=== PATIENT | female | born 1955 | race Caucasian/White ===

== ENCOUNTER 2021-04-23 01:48 | Emergency (ER) | payer MEDICARE, SELFPAY ==
[2021-04-23 01:58] VITALS: BP 109/73; PULSE 70; RESP 18; TEMP 36.6; O2SAT 97
--- NOTE | 2021-04-23 02:14 | ED.GENADULT ---
HPI - General Adult General Chief complaint: Allergic Reaction Stated complaint: allergic reaction Time Seen by Provider: 04/23/21 01:54 History of Present Illness HPI narrative: Patient 66-year-old female presents the emergency department with chief complaint of urticaria. Patient reports that she was started on a new medication recently and reports that she has been itching and having hives that have appeared over her body. Patient states that she has been taking Benadryl that helps the sensation somewhat but reports that tonight it got worse. Patient states she is attempted to see her primary care physician but has not been able to get in contact with them. Patient denies shortness of breath denies angioedema. Related Data Allergies Allergy/AdvReac Type Severity Reaction Status Date / Time No Known Allergies Allergy Unknown Verified 07/16/09 11:23 Review of Systems Review of Systems: A 10 system review of systems was completed on the patient and is negative except for what is stated in the HPI. Nursing and ancillary documentation was reviewed. Exam Narrative: GENERAL: Well-appearing, well-nourished, and in no acute distress. HEAD: Normocephalic, atraumatic. EYES: PERRLA and EOMI. ENT: Nares clear, no rhinorrhea or epistaxis. Mucous membranes moist. NECK: Supple. CHEST: Clear to auscultation. No respiratory distress. HEART: Regular rate and rhythm. No murmur heard. Normal peripheral pulses. ABDOMEN: Soft, nontender, nondistended, normal active bowel sounds. EXTREMITIES: Normal range of motion. No edema. SKIN: Warm, dry, urticaria present. NEURO: No focal deficits. Alert and oriented x3. PSYCH: Normal mood and affect. Course Vital Signs Vital signs: Vital Signs Temperature 36.6 C 04/23/21 01:58 Pulse Rate 70 04/23/21 01:58 Respiratory Rate 18 04/23/21 01:58 Blood Pressure 109/73 04/23/21 01:58 Pulse Oximetry 97 04/23/21 01:58 Temperature 36.6 C 04/23/21 01:58 Pulse Rate 70 04/23/21 01:58 Respiratory Rate 18 04/23/21 01:58 Blood Pressure 109/73 04/23/21 01:58 Pulse Oximetry 97 04/23/21 01:58 Medical Decision Making Vital Signs Vital Signs: Vital Signs Temperature 36.6 C 04/23/21 01:58 Pulse Rate 70 04/23/21 01:58 Respiratory Rate 18 04/23/21 01:58 Blood Pressure 109/73 04/23/21 01:58 Pulse Oximetry 97 04/23/21 01:58 Temperature 36.6 C 04/23/21 01:58 Pulse Rate 70 04/23/21 01:58 Respiratory Rate 18 04/23/21 01:58 Blood Pressure 109/73 04/23/21 01:58 Pulse Oximetry 97 04/23/21 01:58 Discharge Plan Discharge Clinical Impression: Allergic reaction Qualifiers: Encounter type: initial encounter Qualified Code(s): T78.40XA - Allergy, unspecified, initial encounter Patient Disposition: Home, Self-Care Condition: Stable Instructions: Antibiotic Form, General Allergic Reaction (ED) Prescriptions: New methylprednisolone [Medrol (Ralph)] 4 mg tablets,dose pack See Rx Instructions .ROUTE .COMPLEX Qty: 21 RF: 0 Follow-up/Referrals: Tigre Montejo MD [Primary Care Provider] - Time of Disposition: 02:56
[2021-04-23] MEDS: methylPREDNISolone SOD SUCC 125 MG VIAL IV PUSH (02:19)
[2021-04-23] MEDS: FAMOTIDINE 20 MG/2 ML VIAL IV PUSH (02:19)
[2021-04-23] MEDS: diphenhydrAMINE HCl INJ 50 MG/ML VIAL 25 MG IV PUSH (02:19)
[2021-04-23 03:42] VITALS: BP 110/69; PULSE 69; RESP 18; O2SAT 99
== END 2021-04-23 04:06 | disposition home or self-care (01) ==
PROVIDERS: Emergency Provider Emergency Medicine; PCP Obstetrics & Gynecology
DX: T78.40XA Allergy, unspecified, initial encounter (principal)
CPT/HCPCS: 96374; 96375; 99284; J1200; J2930

== ENCOUNTER 2022-03-27 14:27 | Outpatient (CLI) | payer MEDICARE, SELFPAY ==
--- NOTE | 2022-03-28 11:15 | P.PCNPFT_ITS ---
PFT Procedure Performed PFT Procedure Performed Plethysmography (Lung Vol) Diffusing Cap (DLCO) Flow Vol Loop Spirometry w/o Bronchodil PFT Interpretation Lung volumes were measured with the body plethysmography method. Lung volumes are unremarkable. Spirometry showed diminished expiratory flow rates and a d iminished FEV1 to FVC ratio 61%, indicative of obstructive airway disease. No post bronchodilator study was carried out. Lung diffusion capacity is moderately reduced at 53% predicted. Flow-volume loop is consistent with obstructive airway disease. Impression: Moderate obstructive airway disease. Moderately reduced lung diffusion capacity.
== END 2022-03-27 14:28 | disposition home or self-care (01) ==
PROVIDERS: PCP Internal Medicine; Visit Provider Internal Medicine Cardiovascular Disease
DX: R06.00 Dyspnea, unspecified (principal); J44.9 Chronic obstructive pulmonary disease, unspecified
CPT/HCPCS: 94375; 94726; 94729

== ENCOUNTER 2022-05-15 09:31 | Outpatient (CLI) | payer MEDICARE, SELFPAY ==
--- NOTE | ~2022-05-15 | XR_ITS ---
EXAMINATION: XR chest 2V DATE: 05/15/2022 09:59 INDICATION: Dyspnea on exertion. Possible asthma. TECHNIQUE: PA and lateral views of the chest were obtained. COMPARISON: None FINDINGS: Mild hyperexpansion of lungs with slight flattening of the diaphragm on the lateral projection. Linea r discoid atelectasis at the bilateral lung bases. No other airspace opacities, pulmonary edema, pleu ral effusion or pneumothorax. The cardiomediastinal silhouette is normal. Mild thoracic spondylosis. IMPRESSION: 1. Mild hyperexpansion of lungs which could be seen with asthma or COPD. 2. Mild discoid atelectasis at the bilateral lung bases. Reviewed, dictated and finalized at location B.
== END 2022-05-15 09:32 | disposition home or self-care (01) ==
PROVIDERS: PCP Internal Medicine; Visit Provider Physician Assistant
DX: R06.02 Shortness of breath (principal); R91.8 Other nonspecific abnormal finding of lung field
CPT/HCPCS: 71046

== ENCOUNTER 2022-06-01 07:03 | Emergency (ER) | payer MEDICARE, SELFPAY ==
[2022-06-01] VITALS (33 sets, daily range): BP systolic 94–110; BP diastolic 52–77; PULSE 78–129; RESP 13–25; TEMP 38.2; O2SAT 95–100
--- NOTE | ~2022-06-01 | XR_ITS ---
EXAMINATION: XR chest 1V portable DATE: 06/01/2022 09:20 INDICATION: Fever and cough. TECHNIQUE: frontal view of the chest was obtained. COMPARISON: Chest radiograph dated 06/01/2022 FINDINGS: Again seen is mild hyperexpansion of lungs. No focal airspace opacities, pulmonary edema, pleural eff usion or pneumothorax. The cardiomediastinal silhouette is normal. IMPRESSION: 1. Mild hyperexpansion of lungs without airspace disease. Reviewed, dictated and finalized at location A. CURE WORKER
--- NOTE | ~2022-06-01 | CT_ITS ---
EXAMINATION: CT IAC/mastoids BI wo con DATE: 06/01/2022 10:16 INDICATION: Mastoiditis with fever TECHNIQUE: Computed tomography (CT) of the temporal bones was performed without intravenous contrast. Additional sagittal and coronal reconstructions were performed. The dose-length product was 189.12 m Gy-cm. COMPARISON: None FINDINGS: RIGHT TEMPORAL BONE: Very small mastoid effusion in a few of the more posterior inferior right mastoid air cells. The arlin rity of the mastoid air cells vein clear as is the middle ear cavity including Prussak's space. The s cutum and ossicular chain appear normal. The external auditory canal and tympanic membrane are normal . The oval window, cochlea, vestibule and semicircular canals are normal. No abnormalities identified along the course of the facial nerve. The internal auditory canal, vestibular canal and cochlear can al are normal. No tegmental dehiscence. Carotid canal and jugular bulb are normal. LEFT TEMPORAL BONE: Minimal effusion in the single inferior most right mastoid air cell. The remainder of the mastoid air cells are clear as is the middle ear cavity including Prussak's space. The scutum and ossicular monica n appear normal. The external auditory canal and tympanic membrane are normal. The oval window, cochl ea, vestibule and semicircular canals are normal. No abnormalities identified along the course of the facial nerve. The internal auditory canal, vestibular canal and cochlear canal are normal. No tegmen chandrika dehiscence. Carotid canal and jugular bulb are normal. IMPRESSION: 1. Very small right and negligible left mastoid effusions. Otherwise normal study. Reviewed, dictated and finalized at location A. RVISOR ACCOUNTS RECEIVABLE IMPRESSION: 1. Very small right and negligible left mastoid effusions. Otherwise normal curt dy.
--- NOTE | 2022-06-01 08:57 | ED.GENADULT ---
HPI - General Adult General Chief complaint: Upper Respiratory Infection Stated complaint: Asthma, coughing, sore throat, rash Time Seen by Provider: 06/01/22 08:22 Related Data Home Medications Medication Instructions Recorded Confirmed lorazepam 1 mg tablet 1 mg PO TID PRN 05/01/22 05/06/22 calcium carbonate-vitamin D3 500 cap PO DAILY 05/06/22 mg (1,250 mg)-50 unit capsule multivitamin 1 tablet PO DAILY 05/06/22 05/06/22 Allergies Allergy/AdvReac Type Severity Reaction Status Date / Time No Known Allergies Allergy Unknown Verified 06/01/22 07:16 [facility] Past Medical History Medical History Back pain Surgical History Surgical History (Updated 05/06/22 @ 13:16 by Geni Castellanos MA) H/O removal of cyst Family History Family History Sibling Heart disease Sibling Heart disease Mother Heart disease Social History Social History Smoking status: Never smoker Alcohol intake: current Substance use: unknown Course Vital Signs Vital signs: Vital Signs Temperature 100.7 F H 06/01/22 07:07 Pulse Rate 129 H 06/01/22 07:07 Respiratory Rate 20 06/01/22 07:07 Blood Pressure 110/74 06/01/22 07:07 Pulse Oximetry 99 06/01/22 07:07 Oxygen Delivery Room Air 06/01/22 07:07 Temperature 100.7 F H 06/01/22 07:07 Pulse Rate 95 06/01/22 09:19 Respiratory Rate 17 06/01/22 09:19 Blood Pressure 110/74 06/01/22 07:07 Pulse Oximetry 99 06/01/22 07:07 Oxygen Delivery Room Air 06/01/22 07:07 Medical Decision Making Vital Signs Vital Signs: Vital Signs Temperature 100.7 F H 06/01/22 07:07 Pulse Rate 129 H 06/01/22 07:07 Respiratory Rate 20 06/01/22 07:07 Blood Pressure 110/74 06/01/22 07:07 Pulse Oximetry 99 06/01/22 07:07 Oxygen Delivery Room Air 06/01/22 07:07 Temperature 100.7 F H 06/01/22 07:07 Pulse Rate 95 06/01/22 09:19 Respiratory Rate 17 06/01/22 09:19 Blood Pressure 110/74 06/01/22 07:07 Pulse Oximetry 99 06/01/22 07:07 Oxygen Delivery Room Air 06/01/22 07:07 Lab Data Result diagrams: 06/01/22 09:12 06/01/22 09:12 Labs: Lab Results 06/01/22 06/01/22 06/01/22 Range/Units 09:09 09:12 09:12 WBC 10.4 H (4.5-10.0) K/mm3 RBC 4.98 (4.2-5.4) M/mm3 Hgb 14.0 (12.0-15.0) g/dL Hct 42.4 (37.0-47.0) % MCV 85.1 (80-100) fl MCH 28.1 (26-34) pg MCHC 33.0 (32-36) g/dl RDW 13.2 (11.5-14.5) % Plt Count 212 (150-375) k/mm3 MPV 9.0 (7.4-10.4) fl Immature Gran % (Auto) 0.3 (0-0.5) % Neut % (Auto) 89.2 H (45.5-73.1) % Lymph % (Auto) 6.1 L (18.3-44.2) % Hodgeman % (Auto) 4.0 (2.6-8.5) % Eos % (Auto) 0.3 (0-4.4) % Baso % (Auto) 0.1 L (0.2-1.2) % Lymph # (Auto) 0.63 L (0.9-3.2) K/mm3 Hodgeman # (Auto) 0.4 (0.1-0.6) K/mm3 Eos # (Auto) 0.0 (0-0.3) K/mm3 Baso # (Auto) 0.0 (0.0-0.1) K/mm3 Abs Immat Gran (auto) 0.03 (0.00-0.031) K/mm3 Absolute Neuts (auto) 9.3 H (1.3-6.7) K/mm3 Absolute Nucleated RBC 0.0 (0.0-0.012) K/mm3 Nucleated RBC % 0.0 (0.0-0.2) % Sodium 138 (137-145) mmol/L Potassium 4.0 (3.4-5.0) mmol/L Chloride 106 (98-107) mmol/L Carbon Dioxide 22 (22-30) mmol/L Anion Gap 10 (8-16) mmol/L BUN 14 (7-17) mg/dL Creatinine 0.70 (0.7-1.0) mg/dL Estim Creat Clear Calc Not Reportable Estimated GFR > 60 (59 - ) Glucose 120 H (65-110) mg/dL Calcium 8.9 (8.4-10.2) mg/dL Influenza A (RT-PCR) Pending Influenza B (RT-PCR) Pending SARS-CoV-2 RNA (RT-PCR) Pending Discharge Plan Discharge Prescriptions: No Action lorazepam 1 mg tablet 1 mg PO TID PRN multivitamin Tablet 1 tablet PO DAILY albuterol sulfate 90 mcg/actuation HFA aer
--- NOTE | 2022-06-01 08:58 | ECG_ITS ---
Measurements Intervals [place] Rate: 95 P: 64 TN: 157 QRS: 33 QRSD: 91 T: 70 QT: 333 QTc: 419 Interpretive Statements SINUS RHYTHM DELAYED PRECORDIAL R/S TRANSITION BORDERLINE ST-T WAVE ABNORMALITY- DIFFUSE LEADS BORDERLINE ECG NO PREVIOUS ECG AVAILABLE FOR COMPARISON Electronically Signed On 06-01-2022 10:57:22 DISTRICT ADVISER by Kan Velazco D.O.
[2022-06-01] MEDS: ALBUTEROL SULFATE NEB 2.5 MG/3 ML INH 5 MG INHALATION (09:09)
[2022-06-01 09:19] LABS: Basophils Percent Auto 0.1 % (0.2-1.2); Eosinophils Percent Auto 0.3 % (0-4.4); Hematocrit 42.4 % (37.0-47.0); Immature Granulocyte Absolute 0.03 K/mm3 (0.00-0.031); Immature Granulocyte Percent A 0.3 % (0-0.5); Lymphocytes Absolute Auto 0.63 K/mm3 (0.9-3.2); Lymphocytes Percent Auto 6.1 % (18.3-44.2); Mean Corpuscular Hemoglobin 28.1 pg (26-34); Mean Corpuscular Volume 85.1 fl (80-100); Monocytes Absolute Auto 0.4 K/mm3 (0.1-0.6); Neutrophils Absolute Auto 9.3 K/mm3 (1.3-6.7); Neutrophils Percent Auto 89.2 % (45.5-73.1); Platelet Count Result 212 k/mm3 (150-375); Red Blood Count 4.98 M/mm3 (4.2-5.4); Red Cell Distribution Width 13.2 % (11.5-14.5); White Blood Count 10.4 K/mm3 (4.5-10.0)
[2022-06-01 09:33] LABS: Anion Gap 10 mmol/L (8-16); Blood Urea Nitrogen 14 mg/dL (7-17); Calcium 8.9 mg/dL (8.4-10.2); Carbon Dioxide 22 mmol/L (22-30); Chloride 106 mmol/L (98-107); Estimated Glomerular Filt Rate > 60; Glucose 120 mg/dL (65-110); Sodium 138 mmol/L (137-145)
--- NOTE | 2022-06-01 09:41 | ED_ITS ---
HPI - General Adult General Chief complaint: Upper Respiratory Infection Stated complaint: Asthma, coughing, sore throat, rash Time Seen by Provider: 06/01/22 08:22 Related Data Home Medications Medication Instructions Recorded Confirmed lorazepam 1 mg tablet 1 mg PO TID PRN 05/01/22 05/06/22 calcium carbonate-vitamin D3 500 cap PO DAILY 05/06/22 mg (1,250 mg)-50 unit capsule multivitamin 1 tablet PO DAILY 05/06/22 05/06/22 Allergies Allergy/AdvReac Type Severity Reaction Status Date / Time No Known Allergies Allergy Unknown Verified 06/01/22 07:16 [facility] Past Medical History Medical History Back pain Surgical History Surgical History (Updated 05/06/22 @ 13:16 by Geni Castellanos MA) H/O removal of cyst Family History Family History Sibling Heart disease Sibling Heart disease Mother Heart disease Social History Social History Smoking status: Never smoker Alcohol intake: current Substance use: unknown Course Vital Signs Vital signs: Vital Signs Temperature 100.7 F H 06/01/22 07:07 Pulse Rate 129 H 06/01/22 07:07 Respiratory Rate 20 06/01/22 07:07 Blood Pressure 110/74 06/01/22 07:07 Pulse Oximetry 99 06/01/22 07:07 Oxygen Delivery Room Air 06/01/22 07:07 Temperature 100.7 F H 06/01/22 07:07 Pulse Rate 95 06/01/22 09:19 Respiratory Rate 17 06/01/22 09:19 Blood Pressure 110/74 06/01/22 07:07 Pulse Oximetry 99 06/01/22 07:07 Oxygen Delivery Room Air 06/01/22 07:07 Medical Decision Making Vital Signs Vital Signs: Vital Signs Temperature 100.7 F H 06/01/22 07:07 Pulse Rate 129 H 06/01/22 07:07 Respiratory Rate 20 06/01/22 07:07 Blood Pressure 110/74 06/01/22 07:07 Pulse Oximetry 99 06/01/22 07:07 Oxygen Delivery Room Air 06/01/22 07:07 Temperature 100.7 F H 06/01/22 07:07 Pulse Rate 95 06/01/22 09:19 Respiratory Rate 17 06/01/22 09:19 Blood Pressure 110/74 06/01/22 07:07 Pulse Oximetry 99 06/01/22 07:07 Oxygen Delivery Room Air 06/01/22 07:07 Lab Data Result diagrams: 06/01/22 09:12 06/01/22 09:12 Labs: Lab Results 06/01/22 06/01/22 06/01/22 Range/Units 09:09 09:12 09:12 WBC 10.4 H (4.5-10.0) K/mm3 RBC 4.98 (4.2-5.4) M/mm3 Hgb 14.0 (12.0-15.0) g/dL Hct 42.4 (37.0-47.0) % MCV 85.1 (80-100) fl MCH 28.1 (26-34) pg MCHC 33.0 (32-36) g/dl RDW 13.2 (11.5-14.5) % Plt Count 212 (150-375) k/mm3 MPV 9.0 (7.4-10.4) fl Immature Gran % (Auto) 0.3 (0-0.5) % Neut % (
--- NOTE | 2022-06-01 09:48 | ED.GENADULT ---
HPI - General Adult General Chief complaint: Upper Respiratory Infection Stated complaint: Asthma, coughing, sore throat, rash Time Seen by Provider: 06/01/22 08:22 History of Present Illness HPI narrative: 67-year-old female with past medical history of eczema, asthma, seasonal allergies presents for evaluation of cough, fever, sore throat, rash and ear pain. She has taken Benadryl for her rash. Related Data Home Medications Medication Instructions Recorded Confirmed lorazepam 1 mg tablet 1 mg PO TID PRN 05/01/22 05/06/22 calcium carbonate-vitamin D3 500 cap PO DAILY 05/06/22 mg (1,250 mg)-50 unit capsule multivitamin 1 tablet PO DAILY 05/06/22 05/06/22 Allergies Allergy/AdvReac Type Severity Reaction Status Date / Time No Known Allergies Allergy Unknown Verified 06/01/22 07:16 Review of Systems Review of Systems: CONSTITUTIONAL: Denies fever, chills, or sweats. EYES: Denies visual changes, redness, or discharge. ENT: Denies rhinorrhea, congestion, sore throat, or otalgia. CARDIOVASCULAR: Denies chest pain, palpitations, or edema. RESPIRATORY: Denies cough or dyspnea. GASTROINTESTINAL: Denies abdominal pain, nausea, vomiting, or diarrhea. GENITOURINARY: Denies dysuria or hematuria. SKIN: Denies rash or itching. MUSCULOSKELETAL: Denies back pain, joint pain, or myalgia. NEUROLOGIC: Denies headache, numbness, or weakness. PSYCHIATRIC: Denies anxiety or depression. [facility] Past Medical History Medical History Back pain Surgical History Surgical History (Updated 05/06/22 @ 13:16 by Geni Castellanos MA) H/O removal of cyst Family History Family History Sibling Heart disease Sibling Heart disease Mother Heart disease Social History Social History Smoking status: Never smoker Alcohol intake: current Substance use: unknown Exam Narrative: APPEARANCE: No acute distress, nontoxic, resting in bed EYES: EOMI HEENT: Normocephalic, atraumatic, redness and tenderness noted to bilateral mastoids RESPIRATORY: No respiratory distress Clear to auscultation bilaterally with no rhonchi wheezing or rales. CARDIOVASCULAR: Regular rate and rhythm without murmurs rubs or gallops. ABDOMINAL: Soft, nontender, nondistended, no rebound or guarding MUSCULOSKELETAl: Moves all extremities. No clubbing, cyanosis or edema. NEURO: Awake and alert. Following commands, speech normal, no focal deficits SKIN:: Urticarial wheals noted on chest, abdomen and lower extremities warm, dry. No rashes lesions or abrasions PSYCHIATRIC: Normal affect/mood, Course Vital Signs Vital signs: Vital Signs Temperature 100.7 F H 06/01/22 07:07 Pulse Rate 129 H 06/01/22 07:07 Respiratory Rate 20 06/01/22 07:07 Blood Pressure 110/74 06/01/22 07:07 Pulse Oximetry 99 06/01/22 07:07 Oxygen Delivery Room Air 06/01/22 07:07 Temperature 100.7 F H 06/01/22 07:07 Pulse Rate 95 06/01/22 09:19 Respiratory Rate 17 06/01/22 09:19 Blood Pressure 110/74 06/01/22 07:07 Pulse Oximetry 99 06/01/22 07:07 Oxygen Delivery Room Air 06/01/22 07:07 Medical Decision Making Vital Signs Vital Signs: Vital Signs Temperature 100.7 F H 06/01/22 07:07 Pulse Rate 129 H 06/01/22 07:07 Respiratory Rate 20 06/01/22 07:07 Blood Pressure 110/74 06/01/22 07:07 Pulse Oximetry 99 06/01/22 07:07 Oxygen Delivery Room Air 06/01/22 07:07 Temperature 100.7 F H 06/01/22 07:07 Pulse Rate 95 06/01/22 09:19 Respiratory Rate 17 06/01/22 09:19 Blood Pressure 110/74 06/01/22 07:07 Pulse Oximetry 99 06/01/22 07:07 Oxygen Delivery Room Air 06/01/22 07:07 Lab Data Result diagrams: 06/01/22 09:12 06/01/22 09:12 Labs: Lab Results 06/01/22 06/01/22 06/01/22 Range/Units 09:09 09:12 09:12 WBC
[2022-06-01 09:58] LABS: Influenza A QL RT-PCR Negative (Negative); Influenza B QL RT-PCR Negative (Negative); SARS-CoV-2 RNA PCR Negative
[2022-06-01] MEDS: ACETAMINOPHEN 500 MG TABLET 1000 MG PO (10:26)
[2022-06-01] MEDS: diphenhydrAMINE HCl CAP 25 MG CAPSULE PO (10:27)
[2022-06-01] MEDS: DEXAMETHASONE 2 MG TABLET 10 MG PO (10:27)
[2022-06-01] MEDS: LACTATED RINGERS 1,000 ML 500 ML IV CONT (10:30)
[2022-06-01 12:20] LABS: Appearance Urine Clear (Clear); Bilirubin Urine Negative (Negative); Blood Urine Negative (Negative); Color Urine Yellow (Yellow); Glucose Urine UA Negative (Negative); Ketones Urine Trace mg/dL (Negative); Leukocyte Esterase Ur 1+ LEU/UL (Negative); Nitrate Urine Negative (Negative); Protein Urine Negative (Negative); Urobilinogen Urine 0.2 mg/dL (<2.0); pH Urine 6.5 (5.0-9.0)
[2022-06-01 12:23] LABS: Bacteria Urine Trace /hpf; Mucus Urine Heavy /lpf; Squamous Epithelial Cell Urine Few /hpf (Few)
[2022-06-01 12:26] LABS: Add Urine Microscopic? YES
== END 2022-06-01 13:37 | disposition home or self-care (01) ==
PROVIDERS: Emergency Provider Emergency Medicine; PCP Internal Medicine
DX: N39.0 Urinary tract infection, site not specified (principal); Z20.822 Contact with and (suspected) exposure to COVID-19
CPT/HCPCS: 36415; 70480; 71045; 80048; 81001; 85025; 87077; 87081; 87086; 87088; 87636; 87880; 93005; 94640; 96360; 96361; 99284; A9270; J7120; J8540

== ENCOUNTER 2022-06-12 07:53 | Outpatient (CLI) | payer MEDICARE, SELFPAY ==
--- NOTE | ~2022-06-12 | CT_ITS ---
EXAMINATION: CT diagnostic chest wo con DATE: 06/12/2022 08:12 INDICATION: Low diffusion on pulmonary function tests. TECHNIQUE: Computed tomography (CT) of the chest was performed without intravenous contrast. The dose -length product was 131.75 mGy-cm. Automated exposure control and iterative reconstruction technique were employed. COMPARISON: Chest dated 06/01/2022 FINDINGS: There are calcified mediastinal lymph nodes, consistent with chronic granulomatous disease. Heart size is normal. No thoracic lymphadenopathy. No significant pleural or pericardial effusion. T he upper abdomen is unremarkable. No endobronchial lesions. There is calcified granuloma in the right middle lobe. There is right lower lobe atelectasis. There is a 2 mm right upper lobe nodule, image 1 8. There is apical pleural thickening/scarring. There is a 12 mm groundglass nodule in the left upper lobe, likely infectious/inflammatory. There is a linear nodule in the left upper lobe measuring 5 x 2 mm, likely benign. No endobronchial lesions. No focal airspace consolidation. No pneumothorax. Mild thoracic spondylosis. No focal lytic or blastic lesions. IMPRESSION: 1. Small pulmonary nodules which are likely benign. 12 mm groundglass nodule left upper lobe, likely infectious/inflammatory. Consider follow-up low dose CT chest in 12 months. Reviewed, dictated and finalized at location A. ORT MANAGER IMPRESSION: 1. Small pulmonary nodules which are likely benign. 12 mm groundglass nodule le ft upper lobe, likely infectious/inflammatory. Consider follow-up low dose CT c hest in 12 months.
== END 2022-06-12 07:54 | disposition home or self-care (01) ==
PROVIDERS: PCP Internal Medicine; Visit Provider Physician Assistant
DX: R06.02 Shortness of breath (principal); R91.8 Other nonspecific abnormal finding of lung field
CPT/HCPCS: 71250

== ENCOUNTER 2022-08-20 09:05 | Outpatient (CLI) | payer MEDICARE, SELFPAY ==
--- NOTE | ~2022-08-20 | CT_ITS ---
EXAMINATION:CT diagnostic chest wo con DATE: 08/20/2022 09:32 INDICATION: Shortness of breath. TECHNIQUE: Computed tomography (CT) of the chest was performed without intravenous contrast. Automate d exposure control and iterative reconstruction technique were employed. The dose-length product (DLP ) was 127.24 mGy-cm. COMPARISON: Chest CT 06/12/2022 FINDINGS: There is mild scarring at the lung apices. There is mild atelectasis bilaterally. No pleura l effusion. A calcified right lung nodule and calcified right hilar and mediastinal lymph nodes are c onsistent with old granulomatous disease. There is a stable 4 mm nodule in right upper lobe, likely b enign. There is a stable 4 mm nodule in left upper lobe, likely benign. No pleural effusion. The hear t size is normal. No pericardial effusion. There is mild thoracic spondylosis. IMPRESSION: 1. Stable small pulmonary nodules, likely benign. Reviewed, dictated and finalized at location A. [employer]
--- NOTE | 2022-08-20 12:48 | WPDPFTINT ---
PFT Procedure Performed PFT Procedure Performed Spirometry with Pre/Post Bronchodilator Plethysmography (Lung Vol) Diffusing Cap (DLCO) Flow Vol Loop PFT Interpretation This is a pulmonary function test with pre and post-bronchodilator spirometry, plethysmography and diffusing capacity. The test was performed and results interpreted in accordance with the 2019 and 2005 ATS/ERS Task Force guidelines respectively using the Global Lung Function Initiative-2012 reference equations. Patient demonstrated good effort and cooperation. Reproducibility criteria were met. The quality of the pre bronchodilator spirometry maneuver was Grade A and post bronchodilator spirometry maneuver was Grade A. Findings: Spirometry: There is decreased maximal expiratory airflow at all lung volumes with a concave expiratory flow tracing. The contour the inspiratory flow tracing is normal. The pre bronchodilator FVC is 2.50 L, 73% predicted. The pre bronchodilator FEV1 is 1.48 L, 56% predicted. The pre bronchodilator FEV1: FVC ratio is 59%. The post bronchodilator FVC is 2.59 L, representing a 4% increase. The post bronchodilator FEV1 is 1.60 L, representing an 8% increase. The post bronchodilator FEV1: FVC ratio 62%. Plethysmography: The total lung capacity is 4.72 L, 84% predicted. Functional residual capacity is 2.96 L, 104% predicted. The residual volume is 2.22 L, 112% predicted. Diffusion capacity: The diffusing capacity unadjusted for hemoglobin and carboxyhemoglobin is 11.9, 49% predicted. The diffusing capacity adjusted for alveolar volume is 3.34, 75% predicted. When compared to previous pulmonary function testing on 03/27/2022 in which only pre bronchodilator spirometry was performed the pre bronchodilator FVC is unchanged from 2.44 L to 2.50 L. The pre bronchodilator FEV1 is unchanged from 1.48 L to 1.48 L. The total lung capacity is unchanged from 4.59 L to 4.72 L. The functional residual capacity is unchanged from 2.80 L to 2.96 L. The residual volume is unchanged from 2.15 L to 2.22 L. The diffusing capacity unadjusted for hemoglobin and carboxyhemoglobin is unchanged from 11.0 to 11.9. The diffusing capacity adjusted for alveolar volume is unchanged from 3.13 to 3.34. Impression: There is a moderately severe obstructive abnormality without significant improvement after inhaling a single dose of albuterol. The lung volumes are normal. The diffusing capacity unadjusted for hemoglobin and carboxyhemoglobin is moderately decreased and normalizes when adjusted for alveolar volume. In comparison to previous pulmonary function testing on 03/27/2022 there has been no significant change in the FVC, FEV1, total lung capacity, functional residual capacity, residual volume or DLCO. Clinical correlation is recommended.
== END 2022-08-20 09:06 | disposition home or self-care (01) ==
PROVIDERS: PCP Internal Medicine; Visit Provider Internal Medicine Critical Care Medicine
DX: R91.1 Solitary pulmonary nodule (principal); R06.02 Shortness of breath; J45.909 Unspecified asthma, uncomplicated; R94.2 Abnormal results of pulmonary function studies; R91.8 Other nonspecific abnormal finding of lung field
CPT/HCPCS: 71250; 94060; 94726; 94729

== ENCOUNTER 2022-09-04 17:19 | Emergency (ER) | payer MEDICARE, SELFPAY ==
--- NOTE | ~2022-09-04 | XR_ITS ---
EXAMINATION: XR chest 2V DATE: 09/04/2022 18:10 INDICATION: Chest pressure. TECHNIQUE: Frontal and lateral views of the chest were obtained. COMPARISON: Chest single view 06/01/2022, chest CT 08/20/2022 FINDINGS: There is mild atelectasis in right lower lung zone. A calcified right lung nodule and calci fied right hilar and mediastinal lymph nodes are consistent with old granulomatous disease. No pleura l effusion or pneumothorax. The heart size is normal. IMPRESSION: 1. No acute cardiopulmonary disease. Reviewed, dictated and finalized at location A. DEVELOPER
[2022-09-04 17:26] VITALS: BP 147/87; PULSE 128; RESP 16; TEMP 37.2; O2SAT 100
--- NOTE | 2022-09-04 17:30 | ECG_ITS ---
Measurements Intervals [place] Rate: 110 P: 72 [place]: 155 QRS: 4 QRSD: 71 T: 79 QT: 321 QTc: 436 Interpretive Statements SINUS TACHYCARDIA POOR R-WAVE PROGRESSION POSSIBLE INFERIOR MYOCARDIAL INFARCTION , PROBABLY OLD [30 ms Q WAVE IN II/aVF] ABNORMAL RHYTHM ECG COMPARED TO ECG 06/01/2022 09:37:42 INFERIOR Q-WAVES ARE NOW SEEN Electronically Signed On 09-05-2022 15:08:36 ENTRANCE GUARD by Urbano Hunter M.D.
[2022-09-04 17:48] LABS: Basophils Absolute Auto 0.1 K/mm3 (0.0-0.1); Basophils Percent Auto 0.3 % (0.2-1.2); Eosinophils Percent Auto 0.1 % (0-4.4); Hematocrit 41.9 % (37.0-47.0); Hemoglobin 13.7 g/dL (12.0-15.0); Immature Granulocyte Absolute 0.11 K/mm3 (0.00-0.031); Immature Granulocyte Percent A 0.6 % (0-0.5); Lymphocytes Absolute Auto 1.16 K/mm3 (0.9-3.2); Lymphocytes Percent Auto 5.9 % (18.3-44.2); Mean Corpuscular HGB Conc 32.7 g/dl (32-36); Mean Corpuscular Hemoglobin 28.1 pg (26-34); Mean Platelet Volume 8.7 fl (7.4-10.4); Monocytes Absolute Auto 0.7 K/mm3 (0.1-0.6); Monocytes Percent Auto 3.5 % (2.6-8.5); Neutrophils Absolute Auto 17.8 K/mm3 (1.3-6.7); Neutrophils Percent Auto 89.6 % (45.5-73.1); Platelet Count Result 280 k/mm3 (150-375); Red Blood Count 4.87 M/mm3 (4.2-5.4); Red Cell Distribution Width 13.4 % (11.5-14.5); White Blood Count 19.8 K/mm3 (4.5-10.0)
[2022-09-04 17:58] LABS: Prothrombin Time 13.2 Seconds (11.1-14.7)
[2022-09-04 17:59] LABS: Partial Thromboplastin Time 26.9 SECONDS (22.3-36.8)
[2022-09-04 18:03] LABS: Alanine Aminotransferase 24 U/L (6-35); Albumin Level 4.6 g/dL (3.5-5.1); Alkaline Phosphatase 92 U/L (38-126); Anion Gap 7 mmol/L (8-16); Aspartate Amino Transferase 31 U/L (14-36); Bilirubin,Total 0.8 mg/dL (0.2-1.3); Blood Urea Nitrogen 15 mg/dL (7-17); Calcium 8.9 mg/dL (8.4-10.2); Carbon Dioxide 26 mmol/L (22-30); Chloride 103 mmol/L (98-107); Estimated CRCL calculation 45 ml/min; Estimated Glomerular Filt Rate > 60; Glucose 146 mg/dL (65-110); Lipase 78 U/L (23-300); Potassium 3.5 mmol/L (3.4-5.0); Sodium 136 mmol/L (137-145)
[2022-09-04 18:13] LABS: Troponin I < 0.012 ng/mL (0.000-0.034)
[2022-09-04 19:51] VITALS: BP 102/70; PULSE 90; O2SAT 100
[2022-09-04 21:28] LABS: Troponin I < 0.012 ng/mL (0.000-0.034)
[2022-09-04 21:56] VITALS: BP 104/70; PULSE 92; RESP 16; O2SAT 99
[2022-09-04 22:23] VITALS: PULSE 90
[2022-09-04] MEDS: SODIUM CHLORIDE 0.9% IV 1,000 ML 999 ML IV CONT (23:29)
[2022-09-04 23:38] VITALS: BP 103/73; PULSE 90; RESP 16; O2SAT 97
[2022-09-04 23:49] LABS: Appearance Urine Slightly Cloudy (Clear); Bilirubin Urine Negative (Negative); Blood Urine Negative (Negative); Color Urine Yellow (Yellow); Glucose Urine UA Negative (Negative); Ketones Urine Negative (Negative); Leukocyte Esterase Ur 1+ LEU/UL (Negative); Nitrate Urine Negative (Negative); Protein Urine Trace mg/dL (Negative); Urobilinogen Urine 0.2 mg/dL (<2.0); pH Urine 6.5 (5.0-9.0)
[2022-09-04 23:56] LABS: Mucus Urine Rare /lpf; Squamous Epithelial Cell Urine Moderate /hpf (Few); WBC Urine >75 /hpf
[2022-09-05 00:09] LABS: D Dimer 0.47 ug/mL (<0.48)
[2022-09-05 00:10] LABS: Add Urine Microscopic? YES
[2022-09-05 00:22] LABS: Influenza A QL RT-PCR Negative (Negative); Influenza B QL RT-PCR Negative (Negative); SARS-CoV-2 RNA PCR Negative
[2022-09-05 00:44] LABS: Troponin I < 0.012 ng/mL (0.000-0.034)
[2022-09-05 01:13] VITALS: BP 125/71; PULSE 71; RESP 16; O2SAT 100
[2022-09-05 02:19] LABS: Lactic Acid Reflex 0.9 mmol/L (0.7-2.0)
--- NOTE | 2022-09-05 02:24 | ED.ARRPALP ---
HPI - Arrhythmia/Palpitations General Chief Complaint: Arrhythmia/Palpitations Stated Complaint: chest pressure/high hr Time Seen by Provider: 09/04/22 22:11 Source: RN notes reviewed History of Present Illness HPI narrative: Patient presents emergency department from home for heart palpitations. Patient states that she woke this morning at 5 AM and fell like her heart was racing. She states that she continued to feel like her heart was racing throughout the morning states she had episodes of her heart rate going all the way up to 830 beats a minute. She states that with these episodes she does have a feeling of heaviness in her chest heaviness is located over the midsternal chest and does not radiate. States she has a history of palpitations over the past several months and has been followed by Dr. Allison with an outpatient evaluation that has been benign up to this point. Patient states she does feel short of breath during these episodes she denies any recent illness she denies any fevers or chills she denies any cough she denies any abdominal pain nausea vomiting diarrhea or any other symptoms. States she does have a history of asthma as well and is followed by pulmonary Related Data Home Medications Medication Instructions Recorded Confirmed lorazepam 1 mg tablet 1 mg PO TID PRN 05/01/22 05/06/22 calcium carbonate-vitamin D3 500 cap PO DAILY 05/06/22 mg (1,250 mg)-50 unit capsule multivitamin 1 tablet PO DAILY 05/06/22 05/06/22 Allergies Allergy/AdvReac Type Severity Reaction Status Date / Time No Known Allergies Allergy Unknown Verified 07/29/22 08:59 Review of Systems Review of Systems: Gen.: Denies fevers or chills ENT: Denies congestion Respiratory: D reports shortness of breath CV: See HPI GI: Denies abdominal pain nausea, emesis or diarrhea denies burning, urgency, frequency or hematuria Musculoskeletal: Denies back pain or muscle pain Neuro: Denies numbness, tingling, weakness or focal weakness Skin: Denies rash Except as documented, all other systems reviewed and negative PMFSH Past Medical History Medical History Back pain Surgical History Surgical History H/O removal of cyst Family History Family History Sibling Heart disease Sibling Heart disease Mother Heart disease Social History Social History Smoking status: Never smoker Alcohol intake: current Substance use: unknown Exam Narrative: APPEARANCE: No acute distress, nontoxic, resting in bed EYES: EOMI HEENT: Normocephalic, atraumatic, OMM RESPIRATORY: No respiratory distress Clear to auscultation bilaterally with no rhonchi wheezing or rales. CARDIOVASCULAR: Regular rate and rhythm without murmurs rubs or gallops. ABDOMINAL: Soft, nontender, nondistended, no rebound or guarding MUSCULOSKELETAl: Moves all extremities. No clubbing, cyanosis or edema. NEURO: Awake and alert. Following commands, speech normal, no focal deficits SKIN:: Warm, dry. No rashes lesions or abrasions PSYCHIATRIC: Normal affect/mood, Course Course Emergency Course: Review Dr. Urbano's note for pulmonary patient has had stress echo by Dr. Allison no acute process Patient is remained on ekg monitor throughout stay in ED with no arrhythmias noted Discussed with patient results of workup and diagnosis. Discussed need for follow-up with primary care, proper use of medication, and reasons to return to the emergency department. Patient understands and agrees to current treatment plan did discuss possible need for Holter monitor as an outpatient Vital Signs Vital signs: Vital Signs Temperature 98.9 F 09/04/22 17:26 Pulse Rate 128 H 09/04/22 17:26 Respiratory Rate 16 09/04/22 17:26 Blood Pressure 147/87 H 09/04/22
[2022-09-05 03:20] VITALS: BP 135/70; PULSE 65; RESP 16; O2SAT 100
== END 2022-09-05 03:20 | disposition home or self-care (01) ==
PROVIDERS: Emergency Medicine; Emergency Provider Emergency Medicine; PCP Internal Medicine
DX: R00.2 Palpitations (principal); R06.02 Shortness of breath; N39.0 Urinary tract infection, site not specified; Z20.822 Contact with and (suspected) exposure to COVID-19; J45.909 Unspecified asthma, uncomplicated; R00.0 Tachycardia, unspecified; R94.31 Abnormal electrocardiogram [ECG] [EKG]
CPT/HCPCS: 36415; 71046; 80053; 81001; 83605; 83690; 84484; 85025; 85380; 85610; 85730; 87086; 87088; 87147; 87636; 93005; 96361; 96365; 99284; J0696; J7030

== ENCOUNTER 2022-11-07 11:40 | Emergency (ER) | payer MEDICARE, SELFPAY ==
--- NOTE | ~2022-11-07 | XR_ITS ---
Left Hand Technique: PA, oblique, and lateral views were obtained. Clinical History: Trauma Findings: There is an oblique, minimally displaced fracture through the proximal shaft of the third p roximal phalanx. There is also suspected impacted transverse Nondisplaced fractures of proximal most shaft of the fourth proximal phalanx. Remaining osseous struc tures appear intact. There is mild degenerative change at the second and third DIP joints. Soft tissu es are unremarkable. Impression: Oblique minimally displaced fracture through the proximal shaft of the third proximal phalanx. Suspected nondisplaced, minimally impacted transverse fracture through the very proximal shaft of the fourth proximal phalanx. Reviewed, dictated and finalized at location M. Impression: Oblique minimally displaced fracture through the proximal shaft of the third pr oximal phalanx. Suspected nondisplaced, minimally impacted transverse fracture through the very proximal shaft of the fourth proximal phalanx.
--- NOTE | ~2022-11-07 | CT_ITS ---
EXAMINATION: CT brain wo con INDICATION: Head injury COMPARISON: None TECHNIQUE: Standard unenhanced head CT. The dose-length product (DLP) was 605.33 mGy-cm. The mA was a djusted according to patient size. Iterative reconstruction technique was employed. FINDINGS: There is left frontal scalp soft tissue swelling. There is no intracranial hemorrhage, acut e infarction, or abnormal mass lesion. The ventricles are normal. There is no abnormal mass effect or midline shift. The verdugo-white matter differentiation is normal. The basal cisterns are patent. The o rbits are normal. 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 The paranasal sinuses, mastoids and calvarium are otherwise normal. IMPRESSION: 1. No acute intracranial abnormality. Reviewed, dictated and finalized at location B.
[2022-11-07 12:12] VITALS: BP 117/75; PULSE 79; RESP 18; TEMP 36.8; O2SAT 98
[2022-11-07] MEDS: HYDROcodone/acetaminophen (*CRX) 5-325 MG TABLET 1 TAB PO (13:00)
--- NOTE | 2022-11-07 14:56 | ED.GENADULT ---
HPI - General Adult General Chief complaint: Fall Stated complaint: fall Time Seen by Provider: 11/07/22 12:31 History of Present Illness HPI narrative: Patient is a 67-year-old female who presents ER status post fall. Patient was going on a walk when she tripped and fell onto outstretched hand. She injured her hand with pain over the palm and the fingers #3 and 4 as well as a laceration to the finger #2. She did strike her head but did not lose consciousness. She is not on any blood thinning medications. No pain in her neck. Her tetanus shot was updated 4 years ago. Related Data Home Medications Medication Instructions Recorded Confirmed lorazepam 1 mg tablet 1 mg PO TID PRN 05/01/22 10/28/22 calcium carbonate-vitamin D3 500 cap PO DAILY 05/06/22 10/28/22 mg (1,250 mg)-50 unit capsule multivitamin 1 tablet PO DAILY 05/06/22 10/28/22 Allergies Allergy/AdvReac Type Severity Reaction Status Date / Time No Known Allergies Allergy Unknown Verified 11/07/22 12:34 Review of Systems Review of Systems: All systems reviewed & are unremarkable except as noted in HPI and below Gastrointestinal: Gastrointestinal: Denies nausea and Denies vomiting Musculoskeletal: Musculoskeletal: Reports arthralgias, Reports joint swelling and Denies muscle cramps Integumentary/Breasts: Skin/Breast: Denies erythema and Denies rash Comments: Contusion of the hand and lacerations left second digit. Neurologic: Denies syncope, Denies headache(s) and Denies focal weakness PMFSH Past Medical History Medical History Back pain Surgical History Surgical History H/O removal of cyst Family History Family History Sibling Heart disease Sibling Heart disease Mother Heart disease Social History Social History Smoking status: Never smoker Alcohol intake: current Substance use: unknown Exam Narrative: GENERAL: Well-appearing, well-nourished, and in no acute distress. HEAD: Normocephalic, contusion left forehead EYES: PERRL and EOMI. ENT: Mucous membranes moist. Superficial abrasions to the lips, no through and through laceration. Teeth without injury. CHEST: Clear to auscultation. No respiratory distress. HEART: Regular rate and rhythm. Normal peripheral pulses. EXTREMITIES: Focused exam left hand reveals bruising extensively over the palmar aspect at MCPs 3 and 4 with bruising extending to the fifth MCP. There is a laceration of the palmar aspect of the second digit just proximal to the PIP that is 2 cm in length. Limited range of motion digits 3 and 4 due to swelling and pain. Normal range of motion neurovascular intact in the left second digit. SKIN: Warm, dry, no rash. NEURO: No focal deficits. Alert and oriented x3. PSYCH: Normal mood and affect. Course Course Emergency Course: Left second digit finger wound irrigated extensively and in a bloodless field there is no penetration of the joint space or laceration with flexor tendon. Nursing techs of place patient in ulnar gutter splint on the left side. I discussed case with Dr. Cage with hand surgery who is happy to follow the patient up in his clinic. Patient is aware of this and she is being given his contact information. Patient will be started on Tylenol with hydrocodone for pain at home. Recommend elevation of the affected extremity this evening. Vital Signs Vital signs: Vital Signs Temperature 98.2 F 11/07/22 12:12 Pulse Rate 79 11/07/22 12:12 Respiratory Rate 18 11/07/22 12:12 Blood Pressure 117/75 11/07/22 12:12 Pulse Oximetry 98 11/07/22 12:12 Oxygen Delivery Room Air 11/07/22 12:12 Temperature 98.2 F 11/07/22 12:12 Pulse Rate 79 11/07/22 12:12 Respiratory Rate 18
== END 2022-11-07 15:25 | disposition home or self-care (01) ==
PROVIDERS: Emergency Provider Emergency Medicine; PCP Internal Medicine
DX: S61.211A Laceration without foreign body of left index finger without damage to nail, initial encounter (principal); S62.613A Displaced fracture of proximal phalanx of left middle finger, initial encounter for closed fracture; W01.0XXA Fall on same level from slipping, tripping and stumbling without subsequent striking against object, initial encounter
CPT/HCPCS: 12001; 29125; 70450; 73130; 99284; A9270

== ENCOUNTER 2023-02-13 12:30 | Outpatient (RCR) | payer MEDICARE, SELFPAY ==
--- NOTE | 2022-11-18 13:42 | OTOPEVAL1 ---
Assessment and note entered by Daniel Gutierrez, RANDAL/Wilebrt, CHT Evaluation Information Assessment Status Evaluation Diagnosis Minimally displaces fractures of left 3rd and 4th proximal phalanges Onset 11/07/22 Subjective Information Patient sustained minimally displaced fractures through the proximal shaft of the 3rd proximal phalanx and nondisplaced fractures of the proximal most shaft of the 4th proximal phalanx when she sustained a fall onto her hand ~10 days ago. She required stitches to the volar surface of the left index finger also, but there was no fracture in this digit. Her hand and forearm were immobilized in the ER and she presents today for fabrication of a custom thermoplastic orthotic. A custom hand based splint was fabricated today which holds the MCPs in about 70 degrees of flexion with the PIPs in extension. The DIPs are free. Assessment OT Clinical Summary Patient referred to outpatient hand therapy after sustaining fractures to the proximal phalanges of digits III-IV on the left hand. She was treated conservatively and presents today for a splint to immobilize these structures. Her hand was splinted in a removable orthotic with the MCPs in about 70 degrees of flexion with the IPs straight for optimal healing and to reduce stiffness when we begin ROM in a few weeks. Plan to have her return for continued treatment to initiate ROM in 2 weeks , then follow up weekly for progression of exercises. Plan of Care Interventions Therapeutic Exercise,Manual Therapy,Neuro Re- education,Therapeutic Activities,Hot Pack/Cold Pack,Check Out for Orthotic/Pr,Paraffin OT Services Indicated Yes Treatment Frequency and 0-1x/week for 5 weeks Duration These treatments will address the objective and functional deficits as defined above. The patient will be advanced safely and appropriately in order for the patient to progress towards his/her prior level of function. Additional exercises will be introduced and as well as a comprehensive home exercise program upon discharge, if needed, ?to ensure carryover of functional gains achieved in the clinic. This treatment plan has been reviewed and agreement upon by the patient.
--- NOTE | 2022-12-23 10:25 | OTOPEVAL1 ---
Assessment and note entered by Daniel Gutierrez, MARIAELENAR/Wilbert, CHT Evaluation Information Assessment Status Progress Diagnosis Minimally displaces fractures of left 3rd and 4th proximal phalanges Onset 11/07/22 Subjective Information Patient has been out of the splint for light ADL tasks at home. She continues to wear it for heavier tasks. She does still get sore after use. She has been immobilized in an intrinsic plus position x5 weeks. We are weaning out of the splint this week. When mobilizing individual joints, the MCPs and PIPs are able to bend 80-90 degrees. When trying to make a composite fist, the MCPs and PIPs are bending 60-75 degrees, indicative of extrinsic tightness vs joint stiffness. We are working on composite flexion stretching to stretch the extensor mechanism. She is compliant with all materials. Reported Pain Level Pain Score 2: Self Report Additional Pain Score Comments Pain does get to 0/10. Reporting some soreness now, 2/10. Increases to 8/10 with passive ROM. Assessment OT Clinical Summary Patient referred to outpatient hand therapy after sustaining fractures to the proximal phalanges of digits III-IV on the left hand. She was treated conservatively. She is making steady progress with functional ROM. We are weaning out of the splint this week and beginning light resistive exercise with putty. Plan to have her continue therapy to progress HEP and functional therapeutic exercises to facilitate return to functional ROM and strength in the left hand. Plan of Care Interventions Therapeutic Exercise,Manual Therapy,Neuro Re- education,Therapeutic Activities,Hot Pack/Cold Pack,Check Out for Orthotic/Pr,Paraffin OT Services Indicated Yes Treatment Frequency and 1x/week for 3 weeks Duration These treatments will address the objective and functional deficits as defined above. The patient will be advanced safely and appropriately in order for the patient to progress towards his/her prior level of function. Additional exercises will be introduced and as well as a comprehensive home exercise program upon discharge, if needed, ?to ensure carryover of functional gains achieved in the clinic. This treatment plan has been reviewed and agreement upon by the patient.
--- NOTE | 2023-01-12 10:09 | OTOPPROG ---
Assessment and note entered by Daniel Gutierrez, MARIAELENAR/Wilbert, CHT Evaluation Information Assessment Status Progress Diagnosis Minimally displaces fractures of left 3rd and 4th proximal phalanges Onset 11/07/22 Subjective Information Patient no longer wears the splint. She is trying to use her hand for everything. She is reporting some limitations with heavier tasks. Reports she feels like she is using her hand for more tasks, but does still get sore afterwards. Composite flexion of the fingers all improved by 2 cm each since our last re-evaluation. She continues to have extrinsic tightness limiting gross finger flexion. Float Nurse strength is measuring 17 lbs today. Assessment OT Clinical Summary Patient referred to outpatient hand therapy after sustaining fractures to the proximal phalanges of digits III-IV on the left hand. She was treated conservatively. She is making steady progress with functional ROM. We are focusing on progressive resistive strengthening and composite flexion of the digits. Plan to have her continue therapy to progress HEP and functional therapeutic exercises to facilitate return to functional ROM and strength in the left hand. Plan of Care Interventions Therapeutic Exercise,Manual Therapy,Neuro Re- education,Therapeutic Activities,Hot Pack/Cold Pack,Check Out for Orthotic/Pr,Paraffin OT Services Indicated Yes Treatment Frequency and 1x/week for 4 weeks Duration These treatments will address the objective and functional deficits as defined above. The patient will be advanced safely and appropriately in order for the patient to progress towards his/her prior level of function. Additional exercises will be introduced and as well as a comprehensive home exercise program upon discharge, if needed, ?to ensure carryover of functional gains achieved in the clinic. This treatment plan has been reviewed and agreement upon by the patient.
--- NOTE | 2023-02-13 13:09 | OTOPDC ---
Assessment and note entered by Daniel Gutierrez OTR/Wilbert, T Discharge Summary 02/13/23 Diagnosis Minimally displaces fractures of left 3rd and 4th proximal phalanges Onset 11/07/22 Subjective Information Patient reports she is having less pain, not waking up in the middle of the night with sharp pains and is able to tolerate more aggressive ROM with less pain. 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 She is using her left hand as much as she can. She reports daily compliance with her HEP. Composite flexion of the all fingers have improved. Measurements from tip to palm: Active ROM Middle: is 3 cm away Rin cm away Small: 1.5 cm away Passively she is able to touch the finger tips to the palm All joints are bending 5-20 degrees more. 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 Reported Pain Level Pain Score 0: Self Report Additional Pain Score Comments No pain at rest. Pain can increase to 5-6/10 at times. Assessment OT Clinical Summary Patient referred to outpatient hand therapy after sustaining fractures to the proximal phalanges of digits III-IV on the left hand. She was treated conservatively. She continues to demonstrate progress toward regaining a functional fist. Actively the fingertips are 1.5-3 cm away from touching the palm and passively they are able to touch. She demonstrates excellent understanding of her HEP. Plan: Patient to be discharged from therapy and to continue her HEP. Plan of Care OT Services Indicated No
== END 2023-02-13 14:10 | disposition home or self-care (01) ==
LOC: ANHOT 12:30
PROVIDERS: PCP Internal Medicine; Visit Provider Plastic Surgery
DX: Z47.89 Encounter for other orthopedic aftercare (principal); S62.613D Displaced fracture of proximal phalanx of left middle finger, subsequent encounter for fracture with routine healing; S62.615D Displaced fracture of proximal phalanx of left ring finger, subsequent encounter for fracture with routine healing
CPT/HCPCS: 97018; 97035; 97110; 97140; 97165; 97763; L3913

== ENCOUNTER 2023-05-06 15:49 | Outpatient (CLI) | payer MEDICARE, SELFPAY ==
--- NOTE | ~2023-05-06 | XR_ITS ---
EXAM: XR wrist LT min 3V DATE: 05/06/2023 16:18 HISTORY: left distal radius fx . COMPARISON: 10/30/2022. FINDINGS: Decreased mineralization. Transverse minimally displaced fracture of the distal left radiu s with lateral cortical buckling, trace posterior angulation, and 1 mm posterior cortical displacemen t. Mildly displaced ulnar styloid fracture. No lytic or blastic lesion. Mild scattered degenerative c hange. No erosion or periosteal change. Soft tissues within normal limits. IMPRESSION: Minimally displaced transverse fracture of the left distal radius. Mildly displaced ulnar styloid fracture. Reviewed, dictated and finalized at location K.
== END 2023-05-06 15:50 | disposition home or self-care (01) ==
PROVIDERS: PCP Internal Medicine; Visit Provider Plastic Surgery
DX: S52.122A Displaced fracture of head of left radius, initial encounter for closed fracture (principal); S52.612A Displaced fracture of left ulna styloid process, initial encounter for closed fracture
CPT/HCPCS: 73110

== ENCOUNTER 2023-05-27 06:57 | Outpatient (CLI) | payer MEDICARE, SELFPAY ==
--- NOTE | ~2023-05-27 | XR_ITS ---
XR wrist LT min 3V DATE: 05/27/2023 07:30 INDICATION: Fracture of distal radius TECHNIQUE: 4 views COMPARISON: 05/06/2023 left wrist FINDINGS: There is no 7 change in position or alignment at the transverse distal radial metaphyseal v irtually nondisplaced fracture. There is sclerosis at the fracture site indicating healing new bone f ormation. Fracture of the ulnar styloid process is again noted. Normal radiocarpal alignment. Diffuse osteopenia. IMPRESSION: Healing virtually nondisplaced distal radial metaphyseal fracture Ulnar styloid process fracture Osteopenia Reviewed, dictated and finalized at location B. 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
== END 2023-05-27 06:58 | disposition home or self-care (01) ==
PROVIDERS: PCP Internal Medicine; Visit Provider Plastic Surgery
DX: S52.502D Unspecified fracture of the lower end of left radius, subsequent encounter for closed fracture with routine healing (principal); M85.88 Other specified disorders of bone density and structure, other site
CPT/HCPCS: 73110

== ENCOUNTER 2024-04-06 11:37 | Emergency (ER) | payer MEDICARE, SELFPAY ==
--- NOTE | ~2024-04-06 | XR_ITS ---
XR shoulder RT min 2V Ordering provider: Justino Parra MD History: . FALL UP STAIRS . Comparison: None. FINDINGS: BONES: Fracture of the greater tuberosity is noted. Fracture surgical neck of the right humerus is al so noted. JOINT SPACES: The acromioclavicular joint is normal. The glenohumeral joint is normal. SOFT TISSUES: Normal. IMPRESSION: Fracture of the surgical neck of the right humerus with fracture of the greater tuberosity. No signif icant displacement. Reviewed, dictated and finalized at location A. IMPRESSION: Fracture of the surgical neck of the right humerus with fracture of the greater tuberosity. No significant displacement.
[2024-04-06 11:41] VITALS: PULSE 77; RESP 18; O2SAT 98
--- NOTE | 2024-04-06 12:02 | ED.GENADULT ---
HPI - General Adult General Chief complaint: Extremity Injury, Upper Stated complaint: fall onto right shoulder Time Seen by Provider: 04/06/24 11:51 History of Present Illness HPI narrative: Patient is a 68-year-old female who presents ER after falling while stepping into her home. It was a trip on 1 step falling directly onto her right shoulder. She felt a pop. She is concerned it was dislocated. She was driven here by her neighbor. She did not strike her head or lose consciousness. No numbness or tingling to the arm or leg. Has pain with any sort of range of motion at the shoulder. No pain at the elbow. Related Data Home Medications Medication Instructions Recorded Confirmed lorazepam 1 mg tablet 1 mg PO TID PRN 05/01/22 11/10/23 calcium carbonate-vitamin D3 500 cap PO DAILY 05/06/22 11/10/23 mg (1,250 mg)-50 unit capsule multivitamin 1 tablet PO DAILY 05/06/22 11/10/23 Allergies Allergy/AdvReac Type Severity Reaction Status Date / Time No Known Allergies Allergy Unknown Verified 04/06/24 11:51 Review of Systems Constitutional: Constitutional: Reports no additional constitutional complaints Musculoskeletal: Musculoskeletal: Reports arthralgias, Denies joint swelling and Denies muscle cramps Integumentary/Breasts: Skin/Breast: Reports system reviewed and no additional complaints, except as docu Neurologic: Reports system reviewed and no additional complaints, except as documented PMFSH Past Medical History Medical History (Updated 04/06/24 @ 13:14 by Avi Cooley MD) Asthma Back pain Surgical History Surgical History H/O removal of cyst Family History Family History Sibling Heart disease Sibling Heart disease Mother Heart disease Social History Social History Smoking status: Never smoker Alcohol intake: current Substance use: unknown Exam Narrative: GENERAL: Well-appearing, well-nourished, and in no acute distress. HEAD: Normocephalic, atraumatic. ENT: Mucous membranes moist. HEART: Regular rate and rhythm. Normal peripheral pulses. EXTREMITIES: Tender palpation over the anterior joint line of the right shoulder and head of the clavicle. She range of motion due to pain at the right shoulder. No deformity or tenderness of the right elbow/wrist/hand. SKIN: Warm, dry, no rash. NEURO: Alert and oriented x3. PSYCH: Normal mood and affect. Course Course Emergency Course: Discussed results with patient. Also discussed with Dr. Argueta with ortho. Place in shoulder immobilizer. F/u in clinic and draper for pain. Vital Signs Vital signs: Vital Signs Pulse Rate 77 04/06/24 11:41 Respiratory Rate 18 04/06/24 11:41 Pulse Oximetry 98 04/06/24 11:41 Oxygen Delivery Room Air 04/06/24 11:41 Pulse Rate 77 04/06/24 11:41 Respiratory Rate 18 04/06/24 11:41 Pulse Oximetry 98 04/06/24 11:41 Oxygen Delivery Room Air 04/06/24 11:41 Medical Decision Making Vital Signs Vital Signs: Vital Signs Pulse Rate 77 04/06/24 11:41 Respiratory Rate 18 04/06/24 11:41 Pulse Oximetry 98 04/06/24 11:41 Oxygen Delivery Room Air 04/06/24 11:41 Pulse Rate 77 04/06/24 11:41 Respiratory Rate 18 04/06/24 11:41 Pulse Oximetry 98 04/06/24 11:41 Oxygen Delivery Room Air 04/06/24 11:41 Imaging Data Radiologist's impression: ITS Impressions Shoulder X-Ray 04/06/24 12:51 IMPRESSION: Fracture of the surgical neck of the right humerus with fracture of the greater tuberosity. No significant displacement. Discharge Plan Discharge Clinical Impression: Closed fracture of surgical neck of humerus, Closed fracture of greater tuberosity of humerus Patient Disposition: Home, Self-Care Condition: Stable Instructions: Arm F
[2024-04-06] MEDS: MORPHINE SULFATE (*CRX) 4 MG/ML INJ IV PUSH (12:35)
--- NOTE | 2024-04-06 12:37 | PC.NURSE ---
Pt to XRAY via stretcher at this time.
[2024-04-06 13:47] VITALS: BP 109/68; PULSE 73; RESP 14; TEMP 36.7; O2SAT 99
== END 2024-04-06 13:40 | disposition home or self-care (01) ==
PROVIDERS: Emergency Provider Emergency Medicine; PCP Internal Medicine
DX: S42.251A Displaced fracture of greater tuberosity of right humerus, initial encounter for closed fracture (principal); S42.211A Unspecified displaced fracture of surgical neck of right humerus, initial encounter for closed fracture; J45.909 Unspecified asthma, uncomplicated; W10.9XXA Fall (on) (from) unspecified stairs and steps, initial encounter
CPT/HCPCS: 73030; 96372; 99284; J2270

== ENCOUNTER 2024-07-25 12:30 | Outpatient (RCR) | payer MEDICARE, SELFPAY ==
--- NOTE | 2024-06-24 17:02 | OPREHPOC ---
Outpatient Therapy Plan of Care This is a Multidisciplinary Plan of Care that may contain components documented by all disciplines (PT, OT, and ST.) PT Problem 1 PT Problem #1 Knowledge Deficit PT Goal 1 Goal / Goal Update [place]ataño with HEP Target Visit 4 PT Goal 2 Goal / Goal Update Report no pain greater than 2/10 over a 2 week span Target Visit 8 PT Problem 2 PT Problem #2 Impaired Range of Motion PT Goal 1 Goal / Goal Update 1. Improve R shoulder flexion ROM to 170 degrees to improve active reach 2. improve R shoulder external rotation to 80 degrees to improve dressing and self care Target Visit 8 PT Problem 3 PT Problem #3 Impaired Strength PT Goal 1 Goal / Goal Update 1. Improve R shoulder flexion strength to 4+/5 to improve stabilization 2. Improve R shoulder external rotation strength to 4+5 to promote improved shoulder stabilization for ADL performance Target Visit 8
--- NOTE | 2024-06-24 17:02 | PTOPEVAL1 ---
Assessment and note entered by Darvin Glasgow, PT Evaluation Information Assessment Status Evaluation Diagnosis S42.211A ICD-10 Condition Codes (PT) Pain in right shoulder M25.511 Onset 04/06/24 Subjective Information Reports that she initially had a fall that caused her fracture and was immobilized for 2 weeks. She has been cleaning the house and has been using her shoulder to clean, berry picker decorations, and bake. She has noticed some discomfort with activity and trouble sleeping at this time if she puts any pressure on the shoulder. Feels that it is very easy to overdue things at this point with her shoulder. Reported Pain Level Pain Score 0: Self Report Assessment PT Clinical Summary Patient presents with weakness, loss of shoulder ROM, and functional reach difficulty in dominant shoulder. Patient will benefit from skilled therapy to progress as tolerated though shoulder range of motion and functional stabilization. Some pain limitation is noted. Needs gentle progression of shoulder mobility to prevent re- injury. Plan of Care Interventions Hot Pack/Cold Pack,Manual Therapy,Neuro Re- education,Therapeutic Activities,Therapeutic Exercise PT Services Indicated Yes These treatments will address the objective and functional deficits as defined above. The patient will be advanced safely and appropriately in order for the patient to progress towards his/her prior level of function. Additional exercises will be introduced and as well as a comprehensive home exercise program upon discharge, if needed, ?to ensure carryover of functional gains achieved in the clinic. This treatment plan has been reviewed and agreement upon by the patient.
--- NOTE | 2024-07-22 13:58 | OPREHPOC ---
Outpatient Therapy Plan of Care This is a Multidisciplinary Plan of Care that may contain components documented by all disciplines (PT, OT, and ST.) PT Problem 1 PT Problem #1 Knowledge Deficit PT Goal 1 Goal / Goal Update [place] with HEP Target Visit 4 Progress Met PT Goal 2 Goal / Goal Update Report no pain greater than 2/10 over a 2 week span Target Visit 8 Progress Met PT Problem 2 PT Problem #2 Impaired Range of Motion PT Goal 1 Goal / Goal Update 1. Improve R shoulder flexion ROM to 170 degrees to improve active reach 2. improve R shoulder external rotation to 80 degrees to improve dressing and self care Target Visit 8 Progress Partially Met PT Problem 3 PT Problem #3 Impaired Strength PT Goal 1 Goal / Goal Update 1. Improve R shoulder flexion strength to 4+/5 to improve stabilization 2. Improve R shoulder external rotation strength to 4+5 to promote improved shoulder stabilization for ADL performance Target Visit 8 Progress Partially Met
--- NOTE | 2024-07-22 13:58 | PTOPPROG ---
Assessment and note entered by Darvin Glasgow, PT Evaluation Information Assessment Status Progress Diagnosis S42.211A ICD-10 Condition Codes (PT) Pain in right shoulder M25.511 Onset 04/06/24 Subjective Information Patient reports that overall she is trying to do most functional things but shoulder still gets sore, tight, and pops from time to time which is occasionally painful. She still has some trouble dressing and reaching overhead. Assessment PT Clinical Summary Patient making solid RTOM progress. At this point minimal strength progression has been seen but it reyes not been the focus as we have been restoring functional motion at this time. Will continue to benefit from skilled therapy to address functional deficits listed in dominant injured shoulder. Plan of Care Interventions Hot Pack/Cold Pack,Manual Therapy,Neuro Re- education,Therapeutic Activities,Therapeutic Exercise PT Services Indicated Yes Treatment Frequency and 1-2x/week for 8 visits Duration These treatments will address the objective and functional deficits as defined above. The patient will be advanced safely and appropriately in order for the patient to progress towards his/her prior level of function. Additional exercises will be introduced and as well as a comprehensive home exercise program upon discharge, if needed, ?to ensure carryover of functional gains achieved in the clinic. This treatment plan has been reviewed and agreement upon by the patient.
== END 2024-09-22 23:59 | disposition home or self-care (01) ==
LOC: ANHPT 12:30
PROVIDERS: PCP Internal Medicine; Visit Provider Orthopaedic Surgery
DX: S42.211A Unspecified displaced fracture of surgical neck of right humerus, initial encounter for closed fracture (principal); M25.511 Pain in right shoulder
CPT/HCPCS: 97110; 97140; 97161; 97530